=== PATIENT | female | born 1995 | race Caucasian/White ===

== ENCOUNTER 2020-01-20 13:09 | Emergency (ER) | payer OTHER ==
[2020-01-20 13:14] VITALS: BP 117/78; PULSE 85; TEMP 97.7; BMI 30.9
--- NOTE | 2020-01-20 13:35 | PDOC ---
History of Present Illness - General Chief Complaint: Pain Stated Complaint: LT. TOE INJURY Time Seen by Provider: 01/20/20 13:26 History Source: Patient Exam Limitations: No Limitations (L great toe pain s/p pedicure 5 days ago) - History of Present Illness Associated Symptoms: denies: fever/chills Past History - Travel History Traveled outside of the country in the last 30 days: No - Medical History Allergies/Adverse Reactions: Allergies Allergy/AdvReac Type Severity Reaction Status Date / Time No Known Allergies Allergy Verified 01/20/20 13:14 Home Medications: Ambulatory Orders No Home Medications 0 dose .ROUTE UTDICT 08/30/13 Ondansetron [Zofran Odt -] 4 mg SL TID PRN #21 od.tablet 03/18/15 Cephalexin Monohydrate [Keflex -] 500 mg PO BID 7 Days #14 capsule 01/20/20 Asthma: No Cancer: No Cardiac Disorders: No COPD: No Diabetes: No HTN: No Seizures: No Thyroid Disease: No - Surgical History Cholecystectomy: Yes - Reproductive History Is Patient Now?: No - Psycho-Social/Smoking History Smoking Status: No Smoking History: Never smoked Have you smoked in the past 12 months: No Number of Cigarettes Smoked Daily: 0 - Substance Abuse Hx (Audit-C & DAST Scrn) How often the patient has a drink containing alcohol: Never Score: In Men: 4 or > Positive; In Women: 3 or > Positive: 0 Screen Result (Pos requires Nsg. Audit-10AR): Negative Review of Systems - Review of Systems Constitutional: No: Chills, Fever Musculoskeletal: Yes: Joint Pain (toe pain). No: Joint Swelling, Muscle Weakness, Joint Stiffness Integumentary: No: Rash *Physical Exam - Vital Signs Last Vital Signs Temp Pulse Resp BP Pulse Ox 97.7 F 85 18 117/78 97 01/20/20 13:10 01/20/20 13:10 01/20/20 13:10 01/20/20 13:10 01/20/20 13:10 - Physical Exam General Appearance: Yes: Nourished HEENT: positive: EOMI, JENNIFER Extremity: positive: Tender (L great toe: + mild swelling and tenderness along curticle, no collection of abscess seen, distal pulses intact. FROM ) Neurologic: positive: date puller II-XII NML intact, Fully Oriented, Alert, Normal Mood/Affect, Normal Response, Motor Strength 09/10 Medical Decision Making - Medical Decision Making 01/20/20 13:31 24 years old female presents with left great toe discomfort after a getting a pedicure 5 days ago. Patient denies any trauma or fever, chills. Her last tetanus was 4 years ago. On examination there is tenderness/swelling along the cuticle of the great toe, there is no collection noted. Her range of motion was intact and her distal pulses intact. dx: Early paronychia, warm compresses advised we will discharge patient on anti biotics. Signs and symptoms of worsening infection was discussed Discharge - Discharge Information Problems reviewed: Yes Clinical Impression/Diagnosis: Paronychia Condition: Stable Disposition: HOME - Admission No - Additional Discharge Information Prescriptions: Cephalexin Monohydrate [Keflex -] 500 mg PO BID 7 Days #14 capsule Prescription Drug Monitoring Program (I-STOP) results: I-STOP not reviewed - Follow up/Referral - Patient Discharge Instructions Patient Printed Discharge Instructions: Paronychia Additional Instructions: Do some warm soaks to the toes at least 3-4 times a day. Take antibiotics as prescribed. Return to the emergency room if worsening symptoms occurs as an redness, swelling, pain or fever. - Post Discharge Activity
== END 2020-01-20 13:35 | disposition home or self-care (01) ==
LOC: JERFT 13:09
DX: L03.039 Cellulitis of unspecified toe (principal)
CPT/HCPCS: 99282-25

== ENCOUNTER 2020-08-01 21:38 | Emergency (ER) | payer OTHER ==
[2020-08-01 21:49] VITALS: BP 111/71; PULSE 87; TEMP 98.6; BMI 29.1
[2020-08-01] MEDS ORDERED: DEXAMETHASONE 4 MG TABLET (FP) PO STA (21:59)
[2020-08-01] MEDS ORDERED: KETOROLAC TROMETHAMINE 30 MG/1 ML VIAL IM ONE (22:00)
[2020-08-01] MEDS ORDERED: DEXAMETHASONE SOD PHOSPHATE 10 MG/1 ML VIAL ONE (22:00)
[2020-08-01] MEDS ORDERED: KETOROLAC TROMETHAMINE 30 MG/1 ML VIAL ONE (22:00)
== END 2020-08-01 22:12 | disposition home or self-care (01) ==
LOC: JER 21:38
PROC: 3E0233Z Introduction of Anti-inflammatory into Muscle, Percutaneous Approach (ICD-10-PCS; principal; 2020-08-01)
DX: U07.1 COVID-19 (principal)
CPT/HCPCS: 99284-25

== ENCOUNTER 2022-07-22 18:56 | Emergency (ER) | payer OTHER ==
[2022-07-22 19:16] VITALS: BP 125/82; PULSE 87; RESP 18; TEMP 98.1; BMI 30.8
[2022-07-22] MEDS ORDERED: DOXYCYCLINE HYCLATE 100 MG CAPSULE PO ONE ×2 (19:56→20:04)
== END 2022-07-22 20:06 | disposition home or self-care (01) ==
LOC: JERFT 18:56 → JER 18:56 → JERFT 20:06
DX: L03.111 Cellulitis of right axilla (principal)
CPT/HCPCS: 93005; 93010; 99283-25